=== PATIENT | female | born 1985 | race Caucasian/White ===

== ENCOUNTER → 2020-11-19 | Day surgery (SDC) | payer OTHER ==
[~2020-11-19] MED LIST: IV RINGERS,LACTATED 1000ML 1,000 ML IV ONE; LIDOCAINE 2% PF 5 ML VIAL. ONE; OMEP40CA45 PO; PROPOFOL 10 MG/ML (20ML) VIAL. IV ONE
[2020-11-19 10:42] VITALS: BP 120/80
== END | disposition home or self-care (01) ==
LOC: ENDOS 08:25
PROVIDERS: ATTEND Internal Medicine Gastroenterology
DX: R10.13 Epigastric pain (principal); K29.50 Unspecified chronic gastritis without bleeding; K21.9 Gastro-esophageal reflux disease without esophagitis; M19.90 Unspecified osteoarthritis, unspecified site; F41.9 Anxiety disorder, unspecified; Z20.822 Contact with and (suspected) exposure to COVID-19; Z98.51 Tubal ligation status; Z98.890 Other specified postprocedural states; Z79.899 Other long term (current) drug therapy; Z88.1 Allergy status to other antibiotic agents; Z91.040 Latex allergy status; Z88.8 Allergy status to other drugs, medicaments and biological substances; Z88.6 Allergy status to analgesic agent
CPT/HCPCS: 43235; 81025; 87426; J2704